=== PATIENT | female | born 1970 | race African-American/Black ===

== ENCOUNTER 2018-04-13 15:17 | Observation (INO) ==
[2018-04-13] MEDS ORDERED: Sod Chloride 0.9% Inj 1,000 ML IV.SIG SCH (18:30)
--- NOTE | 2018-04-13 18:32 | ED ---
HPI General Chief complaint: Weakness Stated complaint: poss high blood pressure Time Seen by Provider: 04/13/18 18:26 History of Present Illness HPI narrative: 47-year-old female presents for evaluation of generalized weakness, dizziness, chest pain, shortness of breath, headache. She reports that symptoms started today when she was sitting at work at 2:30 PM. She reports that the chest pain started today at 3:30 PM while she was in the waiting room. Describes it as a substernal achy intermittent pain with no obvious aggravating relieving factors. She describes a headache as a mild frontal pain. She has never had these symptoms before. She reports nausea but no vomiting. Denies abdominal pain, fevers or chills, recent illness, recent travel, dysuria, flank pain, cough, congestion, rash. Symptoms are moderate. Denies any recent medication changes. Denies history of coronary artery disease , hypertension, hyperlipidemia, diabetes. Denies drug, tobacco, alcohol use. She has no other complaints at this time. Related Data Home Medications Medication Instructions Recorded Confirmed amitriptyline 75 mg PO DAILY 04/13/18 04/13/18 rayqsfojuh-nwwunuwsdtcgi-mzzm 1 cap PO Q4H PRN 04/13/18 04/13/18 [Fioricet] desvenlafaxine succinate [Pristiq] 50 mg PO DAILY 04/13/18 04/13/18 Allergies Allergy/AdvReac Type Severity Reaction Status Date / Time No Known Allergies Allergy Uncoded 02/13/16 09:00 Review of Systems ROS: all other systems reviewed are negative [facility] Medical History Medical History Insomnia (Acute) Migraine (Acute) Pituitary adenoma (Acute) Sciatica (Acute) Social History Social History Substance History: No History of Abuse Second Hand Smoke Exposure: No Smoking Status: Never smoker Tobacco Type: Cigarettes How Often Do You Have a Drink Containing Alcohol: Never Recent Travel in [facility] within the Last 8 Weeks: No Recent Out of Country Travel within the Last 8 Weeks: No Exam Narrative Exam Narrative: GENERAL: Well-developed well-nourished female no acute distress. Pulse 115 in triage. SKIN: Warm and dry. HEAD: Atraumatic. Normocephalic. EYES: Pupils equal and round. No scleral icterus. No injection or drainage. ENT: No nasal bleeding or discharge. Mucous membranes pink and moist. NECK: Trachea midline. No JVD. CARDIOVASCULAR: Regular rate and rhythm. No murmur appreciated. RESPIRATORY: No accessory muscle use. Clear to auscultation. Breath sounds equal bilaterally. GASTROINTESTINAL: Abdomen soft, non-tender, nondistended. Hepatic and splenic margins not palpable. MUSCULOSKELETAL: No obvious deformities. No clubbing. No cyanosis. No lower extremity edema. NEUROLOGICAL: Awake and alert. No obvious cranial nerve deficits. Motor grossly within normal limits. Normal speech. Course Initial Documented Vital Signs Temperature 98.2 F 04/13/18 15:47 Pulse Rate 115 H 04/13/18 15:47 Respiratory Rate 17 04/13/18 15:47 Blood Pressure 150/87 H 04/13/18 15:47 Pulse Oximetry 98 04/13/18 15:47 Last Documented Vital Signs Temperature 98.2 F 04/13/18 15:48 Pulse Rate 98 H 04/13/18 18:29 Respiratory Rate 16 04/13/18 18:29 Blood Pressure 121/75 04/13/18 18:29 Pulse Oximetry 100 04/13/18 18:29 Medical Decision Making [facility] Narrative Medical decision making narrative: The patient was placed on ECG monitoring pulse oximetry. A 12 EKG was obtained revealing sinus rhythm normal axis rate of 98. Lab work, chest x-ray, CT brain ordered. The patient was given IV fluids, Zofran. Chest x-ray is normal. CT of the brain reveals no acute abnormalities. Lab work is been reviewed. D-dimer is minimally elevated. This was ordered because she is lightheaded, having shortness of breath and chest pain with tachycardia. CT pulmonary angiogram has been ordered. CT pulmonary angiogram is negative. At this point time the plan is to admit the patient into the chest pain center for serial cardiac enzymes and rule out purposes. She is agreeable. Medical Screen Exam Complete: Yes Emergency Medical Condition: Yes Differential Diagnosis Differential Diagnosis: Acute coronary syndrome, aortic dissection, pulmonary embolism, dehydration, electrolyte abnormality, orthostatic hypotension, pneumothorax, pericarditis, myocarditis, viral syndrome, symptomatic anemia Lab Data Result diagrams: 04/13/18 18:50 04/13/18 18:50 POC Results POC Urine Results Negative Lab Results 04/13/18 04/13/18 04/13/18 Range/Units 18:50 18:50 18:50 WBC 7.5 (4.0-11.0) th/mm3 RBC 4.49 (4.00-5.30) mil/mm3 Hgb 12.8 (11.6-15.3) gm/dL Hct 38.3 (35.0-46.0) % MCV 85.3 (80.0-100.0) fL MCH 28.4 (27.0-34.0) pg MCHC 33.3 (32.0-36.0) % RDW 13.4 (11.6-17.2) % Plt Count 341 (150-450) th/mm3 MPV 8.5 (7.0-11.0) fL Neut % (Auto) 52.8 (16.0-70.0) % Lymph % (Auto) 33.5 (9.0-44.0) % Alfalfa % (Auto) 10.3 H (0.0-8.0) % Eos % (Auto) 2.8 (0.0-4.0) % Baso % (Auto) 0.6 (0.0-2.0) % Neut # (Auto) 4.0 (1.8-7.7) th/mm3 Lymph # (Auto) 2.5 (1.0-4.8) th/mm3 Alfalfa # (Auto) 0.8 (0.0-0.9) th/mm3 Eos # (Auto) 0.2 (0.0-0.4) th/mm3 Baso # (Auto) 0.0 (0.0-0.2) th/mm3 WBC Differential . Differential Comment Auto diff final PT 10.0 (9.8-11.6) sec INR 1.0 Ratio APTT 23.5 L (24.3-30.1) sec D-Dimer Quant (PE/DVT) 0.51 H (0.00-0.50) mg/L FEU Sodium (136-145) meq/L Potassium (3.5-5.1) meq/L Chloride (98-107) meq/L Carbon Dioxide (21.0-32.0) meq/L Anion Gap (5-15) meq/L BUN (7-18) mg/dL Creatinine (0.50-1.00) mg/dL Estimated GFR (>89) mL/min Random Glucose (74-106) mg/dL Calcium (8.5-10.1) mg/dL Magnesium (1.5-2.5) mg/dL Total Bilirubin (0.2-1.0) mg/dL AST (15-37) U/L ALT (10-53) U/L Alkaline Phosphatase (45-117) U/L Total Creatine Kinase (26-192) U/L CK-MB (CK-2) (0.5-3.6) ng/mL CK-MB (CK-2) % (0.0-4.0) % Troponin I (0.02-0.05) ng/mL Total Protein (6.4-8.2) g/dL Albumin (3.4-5.0) g/dL TSH (0.358-3.740) uIU/mL 04/13/18 04/13/18 Range/Units 18:50 18:50 WBC (4.0-11.0) th/mm3 RBC (4.00-5.30) mil/mm3 Hgb (11.6-15.3) gm/dL Hct (35.0-46.0) % MCV (80.0-100.0) fL MCH (27.0-34.0) pg MCHC (32.0-36.0) % RDW (11.6-17.2) % Plt Count (150-450) th/mm3 MPV (7.0-11.0) fL Neut % (Auto) (16.0-70.0) % Lymph % (Auto) (9.0-44.0) % Alfalfa % (Auto) (0.0-8.0) % Eos % (Auto) (0.0-4.0) % Baso % (Auto) (0.0-2.0) % Neut # (Auto) (1.8-7.7) th/mm3 Lymph # (Auto) (1.0-4.8) th/mm3 Alfalfa # (Auto) (0.0-0.9) th/mm3 Eos # (Auto) (0.0-0.4) th/mm3 Baso # (Auto) (0.0-0.2) th/mm3 WBC Differential Differential Comment PT (9.8-11.6) sec INR Ratio APTT (24.3-30.1) sec D-Dimer Quant (PE/DVT) (0.00-0.50) mg/L FEU Sodium 140 (136-145) meq/L Potassium 4.1 (3.5-5.1) meq/L Chloride 106 (98-107) meq/L Carbon Dioxide 25.1 (21.0-32.0) meq/L Anion Gap 9 (5-15) meq/L BUN 5 L (7-18) mg/dL Creatinine 0.98 (0.50-1.00) mg/dL Estimated GFR 74 L (>89) mL/min Random Glucose 71 L (74-106) mg/dL Calcium 8.3 L (8.5-10.1) mg/dL Magnesium 2.1 (1.5-2.5) mg/dL Total Bilirubin 0.3 (0.2-1.0) mg/dL AST 45 H (15-37) U/L ALT 28 (10-53) U/L Alkaline Phosphatase 71 (45-117) U/L Total Creatine Kinase 202 H (26-192) U/L CK-MB (CK-2) 1.5 (0.5-3.6) ng/mL CK-MB (CK-2) % 0.7 (0.0-4.0) % Troponin I Less than 0.02 L (0.02-0.05) ng/mL Total Protein 7.6 (6.4-8.2) g/dL Albumin 3.5 (3.4-5.0) g/dL TSH 2.540 (0.358-3.740) uIU/mL Imaging Data Radiologist's impression: Head CT 04/13/18 18:26 CONCLUSION: 1. Negative CT Head non contrast. . Chest X-Ray 04/13/18 18:27 CONCLUSION: Negative examination. Chest CTA 04/13/18 20:01 CONCLUSION: 1. No evidence of pulmonary embolism. 2. Atelectasis within the right lower lobe. Discharge Plan Physicians Team ED Provider: Abdoulaye Ward ED Midlevel Provider: Pavel Fu Primary Care Provider: Rajiv Arias III Rxs /Orders / Referrals /Forms Prescriptions: No Action amitriptyline 75 mg Tablet 75 mg PO DAILY RF: 0 desvenlafaxine succinate [Pristiq] 50 mg Tablet Extended Release 24 Hr 50 mg PO DAILY RF: 0 [id number]-[id number] [Fioricet] 50-300-40 mg Capsule 1 cap PO Q4H PRN (Reason: Muscle Pain) RF: 0 Discharge Interventions Interventions: Vital Signs Last Done: 04/13/18 18:29 Status ED Status: With Doctor
--- NOTE | 2018-04-13 19:01 | XR ---
EXAM DATE: 04/13/2018 6:58 PM EDT AGE/SEX: 47 years / Female INDICATIONS: Chest pain, shortness of breath starting today CLINICAL DATA: This is the patient's initial encounter. Patient reports that signs and symptoms have been present for 1 day and indicates a pain score of 5/10. MEDICAL/SURGICAL HISTORY: None. None. COMPARISON: [facility], CHEST SINGLE AP, 03/09/2013. . FINDINGS: A single AP view of the chest demonstrates the lungs to be symmetrically aerated without evidence of mass, infiltrate or effusion. The cardiomediastinal contours are unremarkable. Osseous structures a re intact. CONCLUSION: Negative examination. Electronically signed by: Jose Lynn MD 04/13/2018 7:00 PM EDT
[2018-04-13 19:26] LABS: Baso % (Auto) 0.6 % (0.0-2.0); Eos # (Auto) 0.2 th/mm3 (0.0-0.4); Eos % (Auto) 2.8 % (0.0-4.0); Hematocrit 38.3 % (35.0-46.0); Hemoglobin 12.8 gm/dL (11.6-15.3); Lymph # (Auto) 2.5 th/mm3 (1.0-4.8); Lymph % (Auto) 33.5 % (9.0-44.0); Mean Corpuscular HGB Conc 33.3 % (32.0-36.0); Mean Corpuscular Hemoglobin 28.4 pg (27.0-34.0); Mean Corpuscular Volume 85.3 fL (80.0-100.0); Mean Platelet Volume 8.5 fL (7.0-11.0); Mono # (Auto) 0.8 th/mm3 (0.0-0.9); Mono % (Auto) 10.3 % (0.0-8.0); Neut % (Auto) 52.8 % (16.0-70.0); Platelet Count 341 th/mm3 (150-450); Red Blood Count 4.49 mil/mm3 (4.00-5.30); Red Cell Distribution Width 13.4 % (11.6-17.2); White Blood Count 7.5 th/mm3 (4.0-11.0)
[2018-04-13 19:50] LABS: Activated Partial Thrombo Time 23.5 sec (24.3-30.1)
[2018-04-13 19:56] LABS: Alanine Aminotransferase 28 U/L (10-53)
--- NOTE | 2018-04-13 20:02 | CT ---
EXAM DATE: 04/13/2018 7:59 PM EDT AGE/SEX: 47 years / Female INDICATIONS: Cephalgia. CLINICAL DATA: This is the patient's initial encounter. Patient reports that signs and symptoms have been present for 1 day and indicates a pain score of 3/10. MEDICAL/SURGICAL HISTORY: . Pituitary adenoma, sciatica. None. RADIATION DOSE: 56.35 CTDI (mGy) COMPARISON: No prior exams available for comparison. TECHNIQUE: CT of the head without contrast. Using automated exposure control and adjustment of the mA and/or kV according to patient size, radiation dose was kept as low as reasonably achievable to ob tain optimal diagnostic quality images. DICOM format image data is available electronically for revi ew and comparison. FINDINGS: Cerebrum: The ventricles are normal for age. No evidence of midline shift, mass lesion, hemorrhage or acute infarction. No extraaxial fluid collections are seen. Posterior Fossa: The cerebellum and brainstem are intact. The 4th ventricle is midline. The cerebe llopontine angle is unremarkable. Extracranial: The visualized portion of the orbits is intact. Skull: The calvaria is intact. No evidence of skull fracture. CONCLUSION: 1. Negative CT Head non contrast. . Electronically signed by: Jose Lynn MD 04/13/2018 8:00 PM EDT
[2018-04-13 20:27] LABS: Albumin 3.5 g/dL (3.4-5.0); Alkaline Phosphatase 71 U/L (45-117); Anion Gap 9 meq/L (5-15); Aspartate Aminotransferase 45 U/L (15-37); Blood Urea Nitrogen 5 mg/dL (7-18); Calcium 8.3 mg/dL (8.5-10.1); Carbon Dioxide 25.1 meq/L (21.0-32.0); Chloride 106 meq/L (98-107); Creatine Kinase 202 U/L (26-192); Glomerular Filtration Rate 74 mL/min (>89); Glucose,Random 71 mg/dL (74-106); Magnesium 2.1 mg/dL (1.5-2.5); Potassium 4.1 meq/L (3.5-5.1); Sodium 140 meq/L (136-145); Total Protein 7.6 g/dL (6.4-8.2)
[2018-04-13 20:40] LABS: CKMB Percent 0.7 % (0.0-4.0); Creatine Kinase MB 1.5 ng/mL (0.5-3.6)
--- NOTE | 2018-04-13 21:31 | CT ---
EXAM DATE: 04/13/2018 9:25 PM EDT AGE/SEX: 47 years / Female INDICATIONS: Shortness of breath, chest pain. CLINICAL DATA: This is the patient's initial encounter. Patient reports that signs and symptoms have been present for 1 day and indicates a pain score of 4/10. MEDICAL/SURGICAL HISTORY: . Pituitary adenoma. None. RADIATION DOSE: 10.62 CTDI (mGy) COMPARISON: No prior exams available for comparison. TECHNIQUE: Volumetric scanning was performed using a multi-row detector CT scanner during bolus infu ria of 75 ml Omnipaque 350 (iohexol) nonionic water-soluble contrast as a single exam dose. The gayatri a was post processed with a variety of visualization algorithms including full volume maximum intensi ty projection and sliding thin slab reformation. Using automated exposure control and adjustment of t he mA and/or kV according to patient size, radiation dose was kept as low as reasonably achievable to obtain optimal diagnostic quality images. DICOM format image data is available electronically for r eview and comparison. FINDINGS: Pulmonary Arteries: No filling defects are seen in the pulmonary arteries out to the subsegmental ve ssels. The left and right pulmonary arteries are normal in diameter. Lung: Atelectasis is noted within the right lower lobe. No infiltrates seen. Effusion: None. Mediastinum: No evidence of mediastinal or hilar adenopathy. Other: The axilla is unremarkable. CONCLUSION: 1. No evidence of pulmonary embolism. 2. Atelectasis within the right lower lobe. Electronically signed by: oJse Lynn MD 04/13/2018 9:29 PM EDT
[2018-04-14 00:08] LABS: Creatine Kinase 158 U/L (26-192)
[2018-04-14 02:06] LABS: Creatine Kinase 133 U/L (26-192)
[2018-04-14] MEDS ORDERED: Regadenoson Inj 0.4 MG/5 ML Syringe IV.PUSH ONE (09:27)
--- NOTE | 2018-04-14 09:59 | P.HPCA ---
History of Present Illness Primary Care Physician: Rajiv Arias III, MD Chief Complaint: Chest pain History of Present Illness: This is a 47-year-old female the presents to ED with complaint of chest discomfort and shortness of breath began yesterday while sitting at home. Less than 2 hours. Denies nausea or diaphoresis. Found nothing to worsen or improve it. Denies history of hypertension, hyperlipidemia, diabetes, CAD. States she has had a stress test in the past and upon reviewing records she had a nonischemic stress test 2012. Denies family history of CAD. Denies recent illness. Denies . States she is a lifetime non-smoker. Denies family history of CAD. Review of Systems General: Patient denies fevers, chills, and recent travel. HEENT: Complained of headache and ED but currently denies this. Patient denies sore throat, difficulty swallowing. Cardiovascular: Has the chest discomfort as mentioned above. Denies sensation of heart beating rapidly or irregularly. No syncope. Denies diaphoresis. Respiratory: She was short of breath. Denies shortness inspirational chest discomfort. Denies coughing wheezing or hemoptysis. GI: Patient denies nausea, vomiting, diarrhea, abdominal pain, bloody stools. Musculoskeletal: Patient denies joint pain or edema. Denies calf pain or edema. Neurovascular: Patient denies numbness, tingling, weakness in extremities. Endocrine: Denies polyuria and polydipsia. Hematologic: Denies easy bruising. Skin: Denies rash or itching. PMFSH - History History Provided By: Patient - Medical History Medical History: Medical History (Last Updated 04/13/18 @ 18:31 by Roula Castro) Insomnia Migraine Pituitary adenoma Sciatica - Tobacco History Second Hand Smoke Exposure: No Tobacco Use In Past 30 Days: No Smoking Status: Never smoker Tobacco Type: Cigarettes - Alcohol History How Often Do You Have a Drink Containing Alcohol: Monthly or less - Substance Use History Substance History: No History of Abuse - Travel History Recent Travel in the [place] Within the Last 8 Weeks: No Recent Travel Out of the Country Within the Last 8 Weeks: No - Immunization History Tetanus Immunization: Unsure Hx Influenza Vaccine This Season: No Medications and Allergies Active Medications: Active Medications Sodium Chloride (Ns Inj) 1,000 mls @ 0 mls/hr IV.SIG BOLUS HELEN Last Infusion: 04/13/18 21:49 Dose: Infused Sodium Chloride (Ns Flush) 2 ml IV.FLUSH UNSCH PRN PRN Reason: FLUSH AFTER USING IV ACCESS Last Admin: 04/13/18 19:01 Dose: 2 ml Sodium Chloride (Ns Flush) 2 ml IV.FLUSH BID HELEN Last Admin: 04/14/18 09:42 Dose: 2 ml Sodium Chloride (Ns Flush) 2 ml IV.FLUSH PRN PRN PRN Reason: FLUSH AFTER USING IV ACCESS Allergies Allergy/AdvReac Type Severity Reaction Status Date / Time No Known Allergies Allergy Uncoded 02/13/16 09:00 Home Medications Medication Instructions Recorded Confirmed Type amitriptyline 75 mg PO DAILY 04/13/18 04/13/18 History inxsdqfymg-ytvbdadppbyzb-fsca 1 cap PO Q4H PRN 04/13/18 04/13/18 History [Fioricet] desvenlafaxine succinate [Pristiq] 50 mg PO DAILY 04/13/18 04/13/18 History Exam Vital signs: Vital Signs 04/13/18 15:47 04/13/18 15:48 04/13/18 18:29 Temperature 98.2 F 98.2 F Pulse Rate 115 H 115 H 98 H Respiratory Rate 17 16 16 Blood Pressure 150/87 H 150/87 H 121/75 Pulse Oximetry 98 98 100 04/13/18 23:18 04/14/18 04:00 04/14/18 07:43 Temperature 97.6 F 97.9 F 98.1 F Pulse Rate 94 H 93 H 91 H Respiratory Rate 17 16 18 Blood Pressure 131/76 115/69 134/81 Pulse Oximetry 99 99 100 04/14/18 08:00 Temperature Pulse Rate 85 Respiratory Rate Blood Pressure Pulse Oximetry Intake & Output 04/13/18 04/14/18 04/14/18 18:59 06:59 18:59 Intake Total 1000 / 1000 Balance 1000 / 1000 Weight 81.647 kg 82.024 kg Intake: IV 1000 / 1000 NS Inj 1,000 ML @ Wide Open IV. 1000 / 1000 SIG BOLUS [facility] Rx#:[id number] Other: Date of Last Bowel Movement 04/12/18 04/12/18 Weight On Admission 81.647 kg Narrative: GENERAL: This is a well-nourished, well-developed patient, in no apparent distress. Patient speaks in clear complete sentences. Patient is pleasant. HEENT: Head is atraumatic and normocephalic. Neck is supple without lymphadenopathy and trachea is midline. No JVD or carotid bruits. CARDIOVASCULAR: Regular rate and rhythm without murmurs, gallops, or rubs. RESPIRATORY: Clear to auscultation. Breath sounds equal bilaterally. No wheezes , rales, or rhonchi. Chest wall is nontender. No use of accessory muscles. GASTROINTESTINAL: Abdomen is nontender, nondistended. Abdomen soft. No obvious pulsatile mass or bruit. No CVA tenderness. Strong femoral pulses bilaterally. Normal bowel sounds in all quadrants. MUSCULOSKELETAL: Patient is moving upper and lower extremities freely. No calf tenderness or edema, no Homans sign. Strong pulses in upper and lower extremities. NEUROLOGICAL: Patient is alert and oriented. Cranial nerves 2-12 are grossly intact. No focal deficits and speech is clear. SKIN: No rash and turgor is normal. Results 04/13/18 18:50 04/13/18 18:50 Cardiac Enzymes 04/13/18 04/13/18 04/14/18 Range/Units 18:50 22:30 01:20 AST 45 H (15-37) U/L CK-MB (CK-2) 1.5 (0.5-3.6) ng/mL Troponin I Less than 0.02 L Less than 0.02 L Less than 0.02 L (0.02-0.05) ng/mL Coagulation 04/13/18 Range/Units 18:50 PT 10.0 (9.8-11.6) sec APTT 23.5 L (24.3-30.1) sec CBC 04/13/18 Range/Units 18:50 WBC 7.5 (4.0-11.0) th/mm3 RBC 4.49 (4.00-5.30) mil/mm3 Hgb 12.8 (11.6-15.3) gm/dL Hct 38.3 (35.0-46.0) % Plt Count 341 (150-450) th/mm3 Neut # (Auto) 4.0 (1.8-7.7) th/mm3 Lymph # (Auto) 2.5 (1.0-4.8) th/mm3 [place] # (Auto) 0.8 (0.0-0.9) th/mm3 Eos # (Auto) 0.2 (0.0-0.4) th/mm3 Baso # (Auto) 0.0 (0.0-0.2) th/mm3 Comprehensive Metabolic Panel 04/13/18 Range/Units 18:50 Sodium 140 (136-145) meq/L Potassium 4.1 (3.5-5.1) meq/L Chloride 106 (98-107) meq/L Carbon Dioxide 25.1 (21.0-32.0) meq/L BUN 5 L (7-18) mg/dL Creatinine 0.98 (0.50-1.00) mg/dL Calcium 8.3 L (8.5-10.1) mg/dL AST 45 H (15-37) U/L ALT 28 (10-53) U/L Alkaline Phosphatase 71 (45-117) U/L Total Protein 7.6 (6.4-8.2) g/dL Albumin 3.5 (3.4-5.0) g/dL Intake and Output 04/13/18 04/14/18 04/14/18 22:59 06:59 14:59 Intake Total 1000 / 1000 Balance 1000 / 1000 Intake: IV 1000 / 1000 NS Inj 1,000 ML @ Wide Open IV. 1000 / 1000 SIG BOLUS HELEN Rx#:[id number] Other: Date of Last Bowel Movement 04/12/18 04/12/18 Weight 81.647 kg 82.024 kg Weight On Admission 81.647 kg EKG interpretations - EKG EKG shows: sinus rhythm (EKGs a sinus rhythm with nonspecific T-wave changes.) Caprini VTE Risk Assessment Caprini VTE Risk Assessment: No/Low Risk (score <= 1) Caprini Risk Assessment Model: Point Value = 1 Point Value = 2 Point Value = 3 Point Value = 5 Age 41-60 Minor surgery BMI > 25 kg/m2 Swollen legs Varicose veins or History of unexplained or recurrent spontaneous Oral contraceptives or hormone replacement Sepsis (< 1 month) Serious lung disease, including pneumonia (< 1 month) Abnormal pulmonary function Acute myocardial infarction Congestive heart failure (< 1 month) History of inflammatory bowel disease Medical patient at bed rest Age 61-74 Arthroscopic surgery Major open surgery (> 45 min) Laparoscopic surgery (> 45 min) Malignancy Confined to bed (> 72 hours) Immobilizing plaster cast Central venous access Age >= 75 History of VTE Family history of VTE Factor V Leiden Prothrombin [id number] Lupus anticoagulant Anticardiolipin antibodies Elevated serum homocysteine Heparin-induced thrombocytopenia Other congenital or acquired thrombophilia Stroke (< 1 month) Elective arthroplasty Hip, pelvis, or leg fracture Acute spinal cord injury (< 1 month) Prophylaxis Regimen: Total Risk Factor Score Risk Level Prophylaxis Regimen 0-1 Low Early ambulation 2 Moderate Order ONE of the following: *Sequential Compression Device (SCD) *Heparin 5000 units SQ BID 3-4 Higher Order ONE of the following medications: *Heparin 5000 units SQ TID *Enoxaparin/Lovenox 40 mg SQ daily (WT < 150 kg, CrCl > 30 mL/min) *Enoxaparin/Lovenox 30 mg SQ daily (WT < 150 kg, CrCl > 10-29 mL/min) *Enoxaparin/Lovenox 30 mg SQ BID (WT < 150 kg, CrCl > 30 mL/min) AND/OR *Sequential Compression Device (SCD) 5 or more Highest Order ONE of the following medications: *Heparin 5000 units SQ TID (Preferred with Epidurals) *Enoxaparin/Lovenox 40 mg SQ daily (WT < 150 kg, CrCl > 30 mL/min) *Enoxaparin/Lovenox 30 mg SQ daily (WT < 150 kg, CrCl > 10-29 mL/min) *Enoxaparin/Lovenox 30 mg SQ BID (WT < 150 kg, CrCl > 30 mL/min) AND *Sequential Compression Device (SCD) Assessment and Plan - Plan * Chest pain: Patient had serial cardiac enzymes and EKGs for ruling out purposes. She was seen by Dr. Espinoza of cardiology in the chest pain center. States she could not walk on a treadmill. Subsequent Lexiscan has been ordered. Patient will be discharged home if her stress test is nonischemic with instructions to follow-up with PCP. Return to ED for interval issues. Patient is stable at this time. She is agreeable to this plan. H&P: Quality - VTE Deep Vein Thrombosis/Pulmonary Embolism Present on Admission: No
--- NOTE | 2018-04-14 10:44 | NM ---
EXAM DATE: 04/14/2018 10:40 AM EDT AGE/SEX: 47 years / Female INDICATIONS:Angina. . Mid chest pain with shortness of breath and dizziness. CLINICAL DATA: This is the patient's initial encounter. Patient reports that signs and symptoms have been present for 1 day and indicates a pain score of 3/10. MEDICAL/SURGICAL HISTORY: None. None. COMPARISON: [facility] [place] MYOCARDIAL PERF TREADMILL SPECT, 03/10/2013. . No external comparison. DOSE: 8.7 mCi Tc 99m Myoview at rest 26.5 mCi [id number] at stress 0.4 mg Lexiscan STRESS SYMPTOMS: None. EJECTION FRACTION: 68 % TECHNIQUE: The patient underwent pharmacologic stress with infusion of prescribed dose. Continuous ECG tracing was monitored during stress. Gated SPECT imaging was performed after stress and conventi onal SPECT imaging was performed at rest. The examination was performed on a SPECT/CT scanner, both attenuation and non-corrected datasets were reviewed. FINDINGS: Distribution: The maximum perfused segment at stress is in the lateral wall. Perfusion Study: The pattern of perfusion at stress is within normal limits. Gated Study: There are intact wall motion and wall thickening without hypokinetic or dyskinetic segm ents. The ejection fraction is calculated at 68%. RISK CATEGORY: Low (<1% Annual Motality Rate) CONCLUSION: Unremarkable myocardial perfusion. Electronically signed by: Misael Foreman MD 04/14/2018 10:43 AM EDT
--- NOTE | 2018-04-14 17:22 | TR ---
Date Performed: 04/14/2018 Time Performed: 09:27:54 DOCTOR: Christina Espinoza DRUG LIST: CLINICAL HISTORY: REASON FOR TEST: REASON FOR ENDING: OBSERVATION: CONCLUSION: Lexiscan stress test was performed under standard four minute protocol. Radionuclid e was injected one minute prior to ending the test. No electrocardiographic abormalities were present to suggest ischemia. Nuclear imaging and interpretation are pending. COMMENTS: No electrocardiographic abormalities were present to suggest ischemia. Nuclear imagin g and interpretation are pending.
--- NOTE | 2018-04-14 17:24 | ECG ---
Date Performed: 04/14/2018 Time Performed: 01:08:44 PTAGE: 47 years EKG: Sinus rhythm NONSPECIFIC T-WAVE ABNORMALITY ABNORMAL ECG Since PREVIOUS TRACING , no significant change noted PREVIOUS TRACIN04/13/2018 19.20 DOCTOR: Christina sEpinoza Interpretating Date/Time 04/14/2018 17:23:40
--- NOTE | 2018-04-14 17:25 | ECG ---
Date Performed: 04/13/2018 Time Performed: 22:43:18 PTAGE: 47 years EKG: Sinus rhythm WITH OCCASIONAL VENTRICULAR PREMATURE COMPLEXES NONSPECIFIC T-WAVE ABNORMALITY BORDERLINE ECG Since PREVIOUS TRACING , no significant change noted DOCTOR: Christina Espinoza Interpretating Date/Time 04/14/2018 17:23:53
--- NOTE | 2018-04-14 17:25 | ECG ---
Date Performed: 04/13/2018 Time Performed: 19:20:02 PTAGE: 47 years EKG: Sinus rhythm NONSPECIFIC T-WAVE ABNORMALITY BORDERLINE ECG Since PREVIOUS TRACING , no significant change noted PREVIOUS TRACIN03/10/2013 04.04 DOCTOR: Christina Espinoza Interpretating Date/Time 04/14/2018 17:24:21
== END 2018-04-14 12:07 | disposition home or self-care (01) ==
LOC: NEDA 15:17 → NEPD 15:17 → NEPFCDU 22:52
PROVIDERS: ADMIT Internal Medicine Cardiovascular Disease; ATTEND Internal Medicine Cardiovascular Disease
DX: G47.00 Insomnia, unspecified; G43.909 Migraine, unspecified, not intractable, without status migrainosus; R53.1 Weakness; R94.31 Abnormal electrocardiogram [ECG] [EKG]; R07.89 Other chest pain